=== PATIENT | male | born 1945 | race Caucasian/White ===

== ENCOUNTER 2017-09-02 12:32 | Emergency (ER) | payer OTHER ==
[~2017-09-02] VITALS: Ht 187.9 cm; Wt 84.8 kg
[~2017-09-02 12:32] MED LIST: ASPIRIN325 M2 PO; BP PILL; DAYPRO600 M1 PO; HCTZ PO; HYCODAN/HYDROMET5 ML PO; HYDROCHLOROTHIA25 M1 PO; HYDROCODONE BIT1 T11 PO; MEDROL DOSEPAK4 MG PO; NORVASC10 MG PO; ROBAXIN750 MG PO; VIBRAMYCIN100 MG PO; VICODIN 500 MG-1 TAB PO
[2017-09-02 12:44] VITALS: BP 174/81
[2017-09-02] MEDS ORDERED: NORCO 5-325 TA1 EACH PO (14:14)
[2017-09-06] MEDS ORDERED: ZOFRAN4 MG PO (14:35)
[2017-09-06] MEDS ORDERED: PERCOCET 5-3251 EACH PO (14:35)
== END 2017-09-02 14:35 | disposition home or self-care (01) ==
LOC: ED 12:32
DX: S82.091A Other fracture of right patella, initial encounter for closed fracture (principal); F17.200 Nicotine dependence, unspecified, uncomplicated; Z79.899 Other long term (current) drug therapy; Z79.82 Long term (current) use of aspirin; W17.89XA Other fall from one level to another, initial encounter; Y93.89 Activity, other specified; Y92.89 Other specified places as the place of occurrence of the external cause; Y99.9 Unspecified external cause status

== ENCOUNTER → 2017-09-06 | Day surgery (SDC) | payer OTHER ==
[2017-09-05 11:45] VITALS: BP 137/77
[2017-09-05 13:12] LABS: BILIRUBIN NEGATIVE (NEGATIVE); BLOOD NEGATIVE (NEGATIVE); CLARITY SL CLOUDY (CLEAR); COLOR YELLOW (YELLOW); GLUCOSE NEGATIVE (NEGATIVE); KETONE NEGATIVE (NEGATIVE); LEUKO ESTERASE NEGATIVE (NEGATIVE); NITRITE NEGATIVE (NEGATIVE)
[2017-09-05 13:40] LABS: ALBUMIN 3.7 gm/dl (3.1-4.5); ALKALINE PHOSPHATASE 106 U/L (45-117); BUN 17 mg/dl (7-24); CHLORIDE 95 mmol/L (98-107); CREATININE 1.19 mg/dL (0.70-1.30); POTASSIUM 3.5 mmol/L (3.5-5.1); SGOT/AST 18 IU/L (3-35); SGPT/ALT 17 U/L (12-78); SODIUM 132 mmol/L (136-145); TOTAL PROTEIN 7.9 gm/dL (6.4-8.2)
[2017-09-05 13:53] LABS: BASO % 0.3 % (0.0-1.0); EOS # 0.4 10*3/uL (0.0-0.4); EOS % 3.5 % (1.0-4.0); HEMOGLOBIN 14.6 g/dl (14.0-18.0); LYMPH # 2.2 10*3/uL (1.3-4.4); MEAN CORPUSCULAR HGB CONC 34.8 g/dl (33.0-37.0); MEAN PLATELET VOLUME 10.9 fl (9.6-12.3); MONO # 1.1 10*3/uL (0.1-1.0); MONO % 9.7 % (3.0-9.0); NEUT # 7.8 10*3/uL (2.3-7.9); NEUT % 66.9 % (47.0-73.0); PLATELET COUNT AUTOMATED 166 10*3/uL (130-400); RED BLOOD COUNT 4.42 10*6/uL (4.50-5.90); RED CELL DISTRI WIDTH 13.2 % (0-14.5); WHITE BLOOD COUNT 11.7 10*3/uL (4.8-10.8)
[2017-09-05 14:01] LABS: BACTERIA TRACE; WBC 0-2 wbc/hpf (0-5)
[~2017-09-06] VITALS: Ht 187.9 cm; Wt 89.8 kg
[2017-09-06] VITALS (12 sets, daily range): BP systolic 124–150; BP diastolic 52–84
[~2017-09-06] MED LIST changes: +NORCO 5-325 TA1 EACH PO; +PERCOCET 5-3251 EACH PO; +ZOFRAN4 MG PO
--- NOTE | ~2017-09-06 | O ---
[place], [place] OPERATIVE NOTE NAME: PARISA PACE [facility] #: [id number] UNIT #: [id number] ROOM: DOCTOR: CALVIN HOLDEN DO BIRTHDATE: [birth year] DOS: 09/06/2017 PREOPERATIVE DIAGNOSIS: Right patellar fracture. POSTOPERATIVE DIAGNOSIS: Right patellar fracture. OPERATIVE PROCEDURE: Right patellar fracture with open reduction and internal fixation with cerclage wire technique. SURGEON: Calvin Holden DO. PRESS TENDER: Fidencio Mckeon. ANESTHESIA: MORIS Seaman. TYPE OF ANESTHESIA: General endotracheal. INDICATIONS: The patient is a 71-year-old male who reports that he fell at his home on 09/02/2017. The patient was seen in the outpatient clinic yesterday. X-rays were reviewed, indicating a fracture of the right patella with displacement. There was noted to be minimal comminution distally. The risks and benefits of the procedure were explained to the patient preoperatively. Preoperative labs and x-rays were obtained. The patient wished to proceed with the surgical procedure. DESCRIPTION OF PROCEDURE: The right knee was marked in the preoperative holding area. The patient was brought to the operative suite. The patient was placed supine on the operative table. General anesthetic with endotracheal intubation was performed. The patient received Ancef 2 grams IV piggyback. The timeout was performed. The right lower extremity was prepped and draped in the usual orthopedic manner. Tourniquet was applied to the right upper thigh. The midline parapatellar incision was marked with a marking pen. The area was injected with Marcaine 0.5% with epinephrine. The extremity was exsanguinated. The tourniquet was inflated to 350 mmHg. The midline parapatellar incision was made sharply with a scalpel. Subcutaneous tissue was spread down to the level of the fascia. The fascia was released. The patellar fracture was identified and copiously irrigated with normal saline. There was noted to be significant hematoma and hemarthrosis. When this was completed, a clamp was utilized to maintain a reduction of the clavicle fracture. The positioning was evaluated under C-arm in AP and lateral position. Two 5/64 Steinmann pins were placed from distal to proximal through the patella, approximately 1 cm superficial to the articular surface. The positioning was evaluated under C-arm and found to be adequate. The K-wires were adjusted as indicated. The 18-gauge cerclage wire was wrapped around the Steinmann pins in a [id number] fashion. This was tightened by hand and the fracture was evaluated during this procedure. The reduction was maintained. The reduction [place], [place] OPERATIVE NOTE NAME: PARISA PACE UNIT #: [id number] ROOM: DOCTOR: CALVIN HOLDEN DO BIRTHDATE: [birth year] was verified by C-arm. The Steinmann pins were cut proximally, bent and advanced into the patella surface. The similar process was performed at the distal edge of the Steinmann pins. Positioning was evaluated by C-arm in multiple planes and found to be adequate. The area was copiously irrigated with normal saline. The wound was closed in a layered fashion with 2-0 Vicryl and skin gretel. The tourniquet was released. The area was again injected with Marcaine 0.25 with epinephrine. Xeroform, 4 x 4s, cast padding and an Jose bandage were applied followed by an Jose bandage and a knee immobilizer. The tourniquet was released prior to application of the dressing. The anesthetic was reversed. The patient was extubated and taken to the recovery room in satisfactory condition. Sponge and needle count correct. ESTIMATED BLOOD LOSS: 20 mL. DRAINS: None. PACKING: None. COMPLICATIONS: None. SPECIMENS: None. IMPLANTS: Steinmann pins 5/64 x 2, 18 gauge cerclage wire. CALVNI HOLDEN DO CM:OPRECORD:OPERATIVE NOTE [id number] CALVIN HOLDEN DO 09/07/17 1934 interface
== END | disposition home or self-care (01) ==
LOC: SDC 01:35
PROVIDERS: Orthopaedic Surgery
DX: S82.001A Unspecified fracture of right patella, initial encounter for closed fracture (principal); I10 Essential (primary) hypertension; J44.9 Chronic obstructive pulmonary disease, unspecified; F17.210 Nicotine dependence, cigarettes, uncomplicated; E55.9 Vitamin D deficiency, unspecified

== ENCOUNTER → 2017-09-20 | Outpatient (CLI) | payer OTHER | END | disposition home or self-care (01) | LOC: ORTHO 03:06 | DX: S82.014D Nondisplaced osteochondral fracture of right patella, subsequent encounter for closed fracture with routine healing (principal); X58.XXXD Exposure to other specified factors, subsequent encounter ==

== ENCOUNTER → 2017-10-15 | Outpatient (CLI) | payer OTHER ==
[2017-10-15 14:02] LABS: BASO % 0.4 % (0.0-1.0); EOS # 0.6 10*3/uL (0.0-0.4); EOS % 7.3 % (1.0-4.0); HEMATOCRIT 41.7 % (42.0-52.0); HEMOGLOBIN 14.9 g/dl (14.0-18.0); LYMPH % 25.1 % (27.0-41.0); MEAN CELL VOLUME 93.5 fl (80.0-94.0); MEAN CORPUSCULAR HGB 33.4 pg (27.0-31.0); MEAN CORPUSCULAR HGB CONC 35.7 g/dl (33.0-37.0); MONO # 0.7 10*3/uL (0.1-1.0); MONO % 9.2 % (3.0-9.0); NEUT # 4.6 10*3/uL (2.3-7.9); NEUT % 57.5 % (47.0-73.0); PLATELET COUNT AUTOMATED 151 10*3/uL (130-400); RED BLOOD COUNT 4.46 10*6/uL (4.50-5.90); RED CELL DISTRI WIDTH 12.9 % (0-14.5); WHITE BLOOD COUNT 8.1 10*3/uL (4.8-10.8)
== END | disposition home or self-care (01) ==
LOC: ORTHO 02:54 → LAB 02:54 → ORTHO 17:55
PROVIDERS: Orthopaedic Surgery
DX: S82.041D Displaced comminuted fracture of right patella, subsequent encounter for closed fracture with routine healing (principal); R79.89 Other specified abnormal findings of blood chemistry; X58.XXXD Exposure to other specified factors, subsequent encounter

== ENCOUNTER → 2017-10-29 | Outpatient (CLI) | payer OTHER | END | disposition home or self-care (01) | LOC: ORTHO 01:58 | DX: S82.041D Displaced comminuted fracture of right patella, subsequent encounter for closed fracture with routine healing (principal); Z96.651 Presence of right artificial knee joint; X58.XXXD Exposure to other specified factors, subsequent encounter ==

== ENCOUNTER → 2017-12-06 | Outpatient (CLI) | payer OTHER | END | disposition home or self-care (01) | LOC: ORTHO 01:08 | DX: S82.041D Displaced comminuted fracture of right patella, subsequent encounter for closed fracture with routine healing (principal); X58.XXXD Exposure to other specified factors, subsequent encounter ==

== ENCOUNTER → 2018-01-11 | Outpatient (CLI) | payer OTHER | END | disposition home or self-care (01) | LOC: ORTHO 04:13 | DX: Z47.89 Encounter for other orthopedic aftercare (principal); S82.091D Other fracture of right patella, subsequent encounter for closed fracture with routine healing; X58.XXXD Exposure to other specified factors, subsequent encounter; Z91.81 History of falling ==

== ENCOUNTER → 2018-02-22 | Outpatient (CLI) | payer OTHER | END | disposition home or self-care (01) | LOC: ORTHO 01:37 | DX: S82.041D Displaced comminuted fracture of right patella, subsequent encounter for closed fracture with routine healing (principal); X58.XXXD Exposure to other specified factors, subsequent encounter ==

== ENCOUNTER → 2018-04-26 | Outpatient (CLI) | payer OTHER | END | disposition home or self-care (01) | LOC: ORTHO 01:41 | DX: S82.041D Displaced comminuted fracture of right patella, subsequent encounter for closed fracture with routine healing (principal); X58.XXXD Exposure to other specified factors, subsequent encounter ==

== ENCOUNTER → 2020-12-27 | Outpatient (CLI) | payer OTHER | END | disposition home or self-care (01) | LOC: US 08:30 | PROVIDERS: ATTEND Nurse Practitioner Family | DX: Z13.6 Encounter for screening for cardiovascular disorders (principal); R91.1 Solitary pulmonary nodule; J43.8 Other emphysema; I25.10 Atherosclerotic heart disease of native coronary artery without angina pectoris; Z72.0 Tobacco use ==

== ENCOUNTER 2022-01-04 19:05 | Emergency (ER) | payer OTHER ==
[~2022-01-04] VITALS: Ht 187.9 cm; Wt 81.6 kg
[2022-01-04 19:27] VITALS: BP 185/78
== END 2022-01-04 22:57 | disposition left against medical advice (07) ==
LOC: ED 19:05
DX: T20.00XA Burn of unspecified degree of head, face, and neck, unspecified site, initial encounter (principal); Z98.890 Other specified postprocedural states; Z79.82 Long term (current) use of aspirin; Z79.899 Other long term (current) drug therapy; X16.XXXA Contact with hot heating appliances, radiators and pipes, initial encounter; Y93.89 Activity, other specified; Y92.89 Other specified places as the place of occurrence of the external cause; Y99.9 Unspecified external cause status

== ENCOUNTER → 2022-01-11 | Outpatient (CLI) | payer OTHER | END | disposition home or self-care (01) | LOC: CARD 07:30 | PROVIDERS: ATTEND Nurse Practitioner Family | DX: R01.1 Cardiac murmur, unspecified (principal) ==

== ENCOUNTER → 2022-07-04 | Outpatient (CLI) | payer OTHER | END | disposition home or self-care (01) | LOC: CT 13:00 | PROVIDERS: ATTEND Internal Medicine | DX: R91.1 Solitary pulmonary nodule (principal); I25.10 Atherosclerotic heart disease of native coronary artery without angina pectoris; J43.9 Emphysema, unspecified; F17.200 Nicotine dependence, unspecified, uncomplicated ==

== ENCOUNTER → 2023-02-01 | Outpatient (CLI) | payer OTHER | END | disposition home or self-care (01) | LOC: CT 14:37 | PROVIDERS: ATTEND Internal Medicine | DX: J44.9 Chronic obstructive pulmonary disease, unspecified (principal); I71.20 Thoracic aortic aneurysm, without rupture, unspecified; R91.8 Other nonspecific abnormal finding of lung field ==